=== PATIENT | female | born 1970 | race Caucasian/White ===

== ENCOUNTER 2018-12-06 10:12 | Day surgery (SDC) | payer MEDICAID ==
[2018-12-06] MEDS ORDERED: PROPOFOL 40 ML (12:17)
[2018-12-06] MEDS ORDERED: LIDOCAINE 100 MG SYRINGE (12:17)
== END 2018-12-06 17:13 | disposition home or self-care (01) ==
LOC: GIL 10:12
DX: R19.4 Change in bowel habit (principal); D12.5 Benign neoplasm of sigmoid colon; K64.8 Other hemorrhoids
CPT/HCPCS: 45380; 84703; 88305

== ENCOUNTER 2019-01-27 07:13 | Day surgery (SDC) | payer MEDICAID ==
[~2019-01-27 07:13] MED LIST: SOD CHLORIDE 0.9% 1,000 ML IV; VANCOMYCIN 1 GM (PMX) 250 ML IVPB
[2019-01-27 08:32] LABS: ADD MAN DIFF? NO
[2019-01-27 08:37] LABS: BASOPHILS % 0.7 % (0.0-2.0); EOSINOPHILS # 0.4 10^3/ul (0.0-0.5); EOSINOPHILS % 7.7 % (0.0-7.0); HEMATOCRIT 39.5 % (37.0-47.0); HEMOGLOBIN 13.3 g/dl (12.0-16.0); LYMPHOCYTES # 1.3 10^3/ul (0.8-2.9); LYMPHOCYTES % 23.6 % (15.0-51.0); MEAN CORPUSCULAR HEMOGLOBIN 30.8 pg (29.0-33.0); MEAN CORPUSCULAR HGB CONC 33.7 g/dl (32.0-37.0); MEAN CORPUSCULAR VOLUME 91.4 fl (82.0-101.0); MEAN PLATELET VOLUME 10.8 fl (7.4-10.4); MONOCYTE # 0.5 10^3/ul (0.3-0.9); NEUTROPHIL # 3.2 10^3/ul (1.6-7.5); NEUTROPHILS % 58.4 % (39.0-77.0); PLATELET COUNT 182 10^3/UL (140-415); RED BLOOD COUNT 4.32 10^6/ul (4.20-5.40); RED CELL DISTRIBUTION WIDTH 11.6 % (11.5-14.5)
[2019-01-27 08:37] LABS: WHITE BLOOD COUNT 5.4 10^3/ul (4.8-10.8)
[2019-01-27 08:38] LABS: INR 0.86; PROTIME 11.8 Sec (11.9-14.9); PT RATIO 0.9
[2019-01-27 08:39] LABS: PARTIAL THROMBOPLASTIN TIME 33.4 Sec (23.0-35.0)
[2019-01-27 08:40] LABS: ALANINE AMINOTRANSFERASE 26 IU/L (13-69); ALBUMIN/GLOBULIN RATIO 1.48; ALKALINE PHOSPHATASE 73 IU/L (42-121); ANION GAP 8 (5-13); ASPARTATE AMINO TRANSFERASE 21 IU/L (15-46); BILIRUBIN,INDIRECT 0.1 mg/dl (0-1.1); BILIRUBIN,TOTAL 0.1 mg/dl (0.2-1.3); CALCIUM 9.2 mg/dl (8.4-10.2); CARBON DIOXIDE 24 mmol/L (21-31); CHLORIDE 110 mmol/L (97-110); CREATININE 0.68 mg/dl (0.44-1.00); Estimated GFR > 60 mL/min (>60); GLUCOSE 93 mg/dl (70-220); POTASSIUM 3.9 mmol/L (3.5-5.1); SODIUM 142 mmol/L (135-144); TOTAL PROTEIN 6.7 g/dl (6.1-8.1)
[2019-01-27 08:42] LABS: BLOOD UREA NITROGEN 27 mg/dl (7-20)
[2019-01-27] MEDS ORDERED: FENTAnyl 50 MCG/ML VIAL (09:25)
[2019-01-27] MEDS ORDERED: MIDAZOLAM 1 MG/ML 2 ML INJ (09:25)
[2019-01-27] MEDS: BUPIVACAINE 0.5%/EPI (SDV) 30 ML INJ (10:06)
[2019-01-27] MEDS ORDERED: LIDOCAINE 2% (SDV) 5 ML INJ (10:13)
[2019-01-27] MEDS ORDERED: PROPOFOL 20 ML (10:13)
[2019-01-27] MEDS ORDERED: CEFAZOLIN 1 GM INJ (10:13)
[2019-01-27] MEDS ORDERED: ONDANSETRON 4 MG INJ (10:14)
[2019-01-27] MEDS ORDERED: METOCLOPRAMIDE 10 MG INJ IV (10:30)
[2019-01-27] MEDS ORDERED: MEPERIDINE 25 MG INJ IV (10:30)
[2019-01-27] MEDS ORDERED: DIPHENHYDRAMINE 50 MG INJ IV (10:30)
[2019-01-27] MEDS ORDERED: ONDANSETRON 4 MG INJ IV (10:30)
[2019-01-27] MEDS ORDERED: FENTAnyl 50 MCG/ML VIAL IV (10:30)
[2019-01-27] MEDS ORDERED: HYDROmorphONE 1 MG/5 ML IV SYRINGE IV ×2 (10:30)
== END 2019-01-27 11:47 | disposition home or self-care (01) ==
LOC: SDS 07:13
DX: D17.1 Benign lipomatous neoplasm of skin and subcutaneous tissue of trunk (principal)
CPT/HCPCS: 21933; 80053; 84703; 85025; 85610; 85730; 88307